=== PATIENT | female | born 1975 | race American Indian/Alaskan Native ===

== ENCOUNTER 2017-06-05 01:07 | Emergency (ER) | payer SELFPAY ==
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
[2017-06-05] MEDS ORDERED: Acetaminophen/oxyCODONE 325-5 MG Tab PO ONE (01:15)
== END 2017-06-05 05:38 | disposition home or self-care (01) ==
LOC: DL.ED 01:07
DX: M25.572 Pain in left ankle and joints of left foot (principal); M25.511 Pain in right shoulder; Z88.5 Allergy status to narcotic agent; Z88.8 Allergy status to other drugs, medicaments and biological substances; V49.88XA Car occupant (driver) (passenger) injured in other specified transport accidents, initial encounter; Y92.410 Unspecified street and highway as the place of occurrence of the external cause
CPT/HCPCS: 73030; 73610; 99283; A9270